=== PATIENT | male | born 1955 | race Two or more races ===

== ENCOUNTER → 2017-04-27 | Outpatient (CLI) | payer MEDICARE ==
[~2017-04-27] MED LIST: ALPR0.5T3 PO
--- NOTE | 2017-04-27 11:21 | REP ---
TRANSRECTAL PROSTATE ULTRASOUND WITH ULTRASOUND GUIDANCE FOR PROSTATE BIOPSY: Real-time sonographic evaluation of the prostate performed utilizing transrectal probe. The size of the gland is 4.7 x 2.9 x 4.4 cm for a total volume of 31.2 mL. A right-sided nodule measures 6 x 5 mm. A left-sided nodule measures 5 x 4 mm. Echotexture is diffusely heterogeneous with scattered tiny echogenic calcifications. Seminal vesicles appear symmetrical. Ultrasound guidance was provided for Dr. Childers who performed ultrasound guided biopsy of the prostate. Signed by Roby Meza MD 04/27/2017 05:01 P
== END | disposition home or self-care (01) ==
LOC: M SMT PRO 07:56
PROVIDERS: ATTEND Urology
DX: C61 Malignant neoplasm of prostate (principal)
CPT/HCPCS: 55700; 76872; 76942; 88344; G0416

== ENCOUNTER → 2017-05-05 | Outpatient (CLI) | payer MEDICARE ==
[2017-05-05 20:01] LABS: ANION GAP 6 MEQ/L (8-16); BLOOD UREA NITROGEN 11 MG/DL (7-18); CALCIUM LEVEL 9.1 MG/DL (8.5-10.1); CARBON DIOXIDE LEVEL 31 MEQ/L (21-32); CHLORIDE LEVEL 99 MEQ/L (98-107); CREATININE FOR GFR 1.01 MG/DL (0.70-1.30); GLOMERULAR FILTRATION RATE > 60.0 (>56); GLUCOSE, FASTING 103 MG/DL (70-105); POTASSIUM SERUM 4.5 MEQ/L (3.5-5.1); SODIUM LEVEL 136 MEQ/L (136-145)
== END ==
LOC: M SMT 13:53
PROVIDERS: ATTEND Urology
DX: C61 Malignant neoplasm of prostate (principal)
CPT/HCPCS: 36415; 80048; G0463

== ENCOUNTER → 2017-05-07 | Outpatient (CLI) | payer MEDICARE ==
--- NOTE | 2017-05-07 13:49 | REP ---
Whole body radionuclide bone scan: Whole body imaging is performed after intravenous administration of MDP radiolabeled with 21.2 mCi of technetium 99m. Whole-body scanning is performed. Additionally enlarged views of the ribs, pelvis and calvarium are performed. There is a bilaterally symmetric pattern of uptake in the shoulders and sternoclavicular joints, compatible with degenerative uptake. There is a small focus of uptake in the right patella, likely degenerative. There are two small radiotracer foci superimposed over the scrotum and penis , likely artifact from radiolabeled urine. No other foci are identified. Impression: Degenerative pattern of uptake. No evidence of skeletal metastatic disease at this time. Artifactual radial labeling from radiolabeled urine over the scrotum penis. The small focus of uptake in the right knee is nonspecific but likely degenerative. Signed by Roby Monroy MD 05/07/2017 01:40 P
== END ==
LOC: M RAD 09:55
PROVIDERS: ATTEND Urology
DX: C61 Malignant neoplasm of prostate (principal)
CPT/HCPCS: 78306; A9503

== ENCOUNTER → 2017-05-10 | Outpatient (CLI) | payer MEDICARE ==
[~2017-05-10] MED LIST changes: +ISOVUE-370 76% 100ML VIAL (Q9967) As Ordered ONE
--- NOTE | 2017-05-10 08:43 | REP ---
Clinical: Prostate cancer. Technique: Axial contrast enhanced images of the pelvis from L4 through mid thigh with coronal and sagittal re-formations using 100 ml Isovue 370 intravenous contrast material. Comparison: None. Findings: Pelvis demonstrates normal bladder and age appropriate appearance to the prostate gland. No monik prostatic stranding or adenopathy is appreciated. No pelvic sidewall, inguinal, or retroperitoneal adenopathy noted. No pelvic fluid. No free air. Visualized osseous structures without focal abnormalities to suggest metastatic disease. Partially thrombosed abdominal aortic aneurysm is suggested measuring 3.1 cm diameter along with atherosclerotic calcifications to the visualized aorta and vasculature. Visualized enteric system demonstrates sigmoid diverticulosis without acute diverticulitis and no evidence for bowel obstruction or acute inflammatory process. Impression: 1. Normal appearance to the prostate and surrounding soft tissues by CT evaluation. No fluid. No adenopathy. No osseous metastatic disease. 2. Sigmoid diverticulosis. 3. Atherosclerotic changes to the visualized aorta and vasculature with findings to suggest mild aortic aneurysm measuring 3.1 cm maximal diameter above the level of bifurcation. Signed by Cuco Edwards MD 05/10/2017 08:34 A
== END ==
LOC: M RAD 07:43
PROVIDERS: ATTEND Urology
DX: C61 Malignant neoplasm of prostate (principal)
CPT/HCPCS: 72193; Q9967

== ENCOUNTER → 2017-06-01 | Outpatient (CLI) | payer MEDICARE ==
[~2017-06-01] MED LIST changes: -ISOVUE-370 76% 100ML VIAL (Q9967) As Ordered ONE
--- NOTE | 2017-06-01 14:06 | RADONC ---
RADIATION ONCOLOGY CONSULTATION NOTE DATE: 06/01/2017 CHART NUMBER: [id number] DIAGNOSIS: Prostate cancer. STAGE: IIB, [id number]. ECOG PERFORMANCE STATUS: 0. CONSULTATION NOTE: Mr. Nelson is a very pleasant 61-year-old white male with the diagnosis what appears to be a stage IIB, [id number], poorly differentiated Ailey 8 (4-4) adenocarcinoma of the prostate with a PSA of 6.5 who is presenting to us today for consideration of definitive external beam radiation therapy with IMRT/IGRT. HISTORY OF PRESENT ILLNESS: The patient was in his usual state of health until 04/09/2017 when a PSA was done and found to be 6.5. On 04/2017 the patient underwent prostatic needle biopsy and pathology revealed a Ailey score 8 (4-4) adenocarcinoma of the prostate. The tumor involved both the right and left sides of his prostate gland. Mr. Nelson has done well since biopsy and is now seeing us for discussion of possible external beam radiation therapy as a therapeutic option with IMRT/IGRT. PAST MEDICAL HISTORY: The patient's past medical history is positive for hypertension and a stroke in 1985. He had hernia surgery in the and an abdominal aortic aneurysm surgery in 2009. ALLERGIES: The patient has NO KNOWN DRUG ALLERGIES. SOCIAL HISTORY: The patient's chews one can of chewing tobacco a day for the past 10 years. He had smoked one pack of cigarettes per day for 20 years prior to that. He drinks alcohol daily. FAMILY HISTORY: The patient's family history is positive for a father who of prostate cancer and a brother with a brain tumor as well as lung cancer. REVIEW OF SYSTEMS: The patient's review of systems is positive for nocturia at five to six times a night but is otherwise noncontributory. He denies nausea, vomiting, fevers, chills, night sweats, diplopia, headaches, anxiety or depression, anorexia, weight loss, visual disturbances, chest pain, urinary or bowel difficulties, bone pain, or neurological problems. PHYSICAL EXAMINATION: The patient is a well-developed, well-nourished male in no acute distress. HEENT exam is normocephalic, atraumatic. Extraocular movements are intact. There is no palpable cervical, supraclavicular, infraclavicular, axillary, or inguinal lymphadenopathy present. Lungs are clear to auscultation and percussion. Heart has a regular rate and rhythm. Abdomen is benign with no hepatosplenomegaly, masses, or tenderness. Rectal examination reveals a normal anal sphincter tone. His prostate is smooth with no evidence of nodularity. Skeletal examination reveals no tenderness to pressure or percussion of the bony skeleton. Extremities reveal no clubbing, cyanosis, or edema. Neurologic exam is grossly intact as is the remainder of the physical examination. MEDICAL NECESSITY: IMRT/IGRT is clinically indicated for the highly conformal dose planning required. The target volume is in close proximity to critical structures, such as the rectum, bladder, small bowel, and femoral heads. The volume of interest must be covered with narrow margins to adequately protect immediately adjacent structures. The plan requires interpretation of complex testing such as CT localization. As noted above, special planning (IMRT) and localizing (IGRT) is required and essential to maximally protect sensitive normal tissue structures which cannot be accomplished using conventional 3-dimensional planning. ASSESSMENT: Clearly the patient is a candidate for external beam radiation therapy and I have so informed him. I have discussed with the patient in detail the potential benefits as well as possible acute and chronic sequelae of external beam radiation therapy. We discussed logistics of treatment planning, simulation and subsequent fractionated daily radiation treatments. The patient is scheduled to be seen by Dr. Childers on June 14 for placement of fiducial markers and initiation of hormonal treatment. We will schedule the patient for simulation following that. I have discussed as well with the patient the surgical options. He has decided against surgery at this time. In that case radiation will be scheduled. Thank you for allowing us to participate in the care of this very pleasant gentleman. If I could be of any further assistance or provide you with any information, please feel free to contact me anytime. cc: MD Timmy Lucas MD
--- NOTE | 2017-07-14 09:58 | RADONC ---
RADIATION ONCOLOGY PROGRESS NOTE DATE: 07/13/2017 CHART NUMBER: [id number] Mr. Nelson was scheduled for a CT simulation of his prostate field today. The patient came in, but reported he was too claustrophobic to lay down on the CT table. I have therefore rescheduled the CT for next week. I have electronically sent in a prescription for Xanax for him for that simulation. Once again, we will we attempt CT simulation next week.
== END ==
LOC: M ONCR 08:59
PROVIDERS: ATTEND Radiology Radiation Oncology
DX: C61 Malignant neoplasm of prostate (principal)

== ENCOUNTER → 2017-06-29 | Outpatient (CLI) | payer MEDICARE ==
--- NOTE | 2017-06-29 10:22 | REP ---
TRANSRECTAL PROSTATE SONOGRAPHY: HISTORY: Prostate CA. FINDINGS: Transrectal prostate sonographic guidance is provided to Dr. Childers who used transrectal ultrasound guidance to place prostate fiducial markers. Signed by Gregory Cheek MD 06/29/2017 11:07 A
== END ==
LOC: M SMT PRO 08:38
PROVIDERS: ATTEND Urology
DX: C61 Malignant neoplasm of prostate (principal); Z79.899 Other long term (current) drug therapy; I10 Essential (primary) hypertension; F17.210 Nicotine dependence, cigarettes, uncomplicated
CPT/HCPCS: 55876; 76872; A4648

== ENCOUNTER → 2017-07-13 | Outpatient (CLI) | payer MEDICARE ==
[2017-07-13 15:54] LABS: MEAN CORPUSCULAR HEMOGLOBIN 30.8 pg (27.0-33.0); MEAN CORPUSCULAR HGB CONC 35.1 g/dl (32.0-36.5); MEAN CORPUSCULAR VOLUME 87.8 fl (80.0-96.0); RED CELL DISTRIBUTION WIDTH 13.2 % (11.5-14.5); WHITE BLOOD COUNT 6.6 K/mm3 (4.0-10.0)
== END ==
LOC: M RAD 13:38 → M LAB 13:38
PROVIDERS: ATTEND Radiology Radiation Oncology
DX: C61 Malignant neoplasm of prostate (principal)

== ENCOUNTER 2017-07-20 14:04 | Outpatient (RCR) | payer MEDICARE ==
--- NOTE | 2017-07-21 10:02 | RADONC ---
RADIATION ONCOLOGY SIMULATION NOTE DATE: 07/20/2017 CHART NUMBER: [id number] Mr Nelson was taken to the CT scan for CT simulation of his prostate field. CT was accomplished without difficulty or discomfort. Radiation treatment planning is underway and radiation treatments will begin subsequently. An immobilization device was created without difficulty or discomfort. It will be used throughout the course of treatment as well. I was physically present throughout the course of CT simulation. [facility]
--- NOTE | 2017-08-02 13:57 | RADONC ---
RADIATION ONCOLOGY PROGRESS NOTE DATE: 08/02/2017 CHART NUMBER: [id number] Mr. Nelson underwent his first fraction of 180 cGy today to his prostate. It was tolerated without difficulty or discomfort. REVIEW OF SYSTEMS: The patient's review of systems remains unchanged and is unremarkable. He denies nausea, vomiting, fevers, chills, night sweats, diplopia, headaches, anxiety or depression, anorexia, weight loss, visual disturbances, chest pain, urinary or bowel difficulties, bone pain, or neurological problems. PHYSICAL EXAMINATION: Clearly, the patient's skin shows no evidence of radiation change present. The remainder of his physical examination remains unchanged, as well. Mr. Nelson tolerated his first fraction quite well, and radiation will continue as scheduled.
== END 2017-08-07 ==
LOC: M ONCR 14:04
PROVIDERS: ATTEND Radiology Radiation Oncology
DX: C61 Malignant neoplasm of prostate (principal)

== ENCOUNTER → 2017-07-20 | Outpatient (CLI) | payer MEDICARE | LOC: M RAD 13:25 | PROVIDERS: ATTEND Radiology Radiation Oncology | DX: C61 Malignant neoplasm of prostate (principal) ==

== ENCOUNTER → 2017-08-16 | Outpatient (CLI) | payer MEDICARE ==
--- NOTE | 2017-08-17 07:14 | RADONC ---
RADIATION ONCOLOGY PROGRESS NOTE DATE: 08/16/2017 CHART NUMBER: [id number] Mr. Nelson is presently at a dose of 1980 cGy to his prostate and is tolerating treatments quite well at this point with no significant difficulties related to his radiation therapy other than some dysuria. He also reports that little black things were in his urine yesterday. He has no other complaints related to his radiation therapy. REVIEW OF SYSTEMS: The patient's review of systems is positive for pain upon urination as well as perhaps some blood in the urine but is otherwise noncontributory. Denies nausea, vomiting, fevers, chills, night sweats, diplopia, headaches, anxiety or depression, anorexia, weight loss, visual disturbances, chest pain, urinary or bowel difficulties, bone pain, or neurological problems. PHYSICAL EXAMINATION: The patient's skin is in good condition with no evidence of radiation change present. There is no moist or dry desquamation. The remainder of his physical exam remains unchanged. Mr. Nelson is tolerating treatments quite well and radiation will continue as scheduled.
--- NOTE | 2017-08-23 11:44 | RADONC ---
RADIATION ONCOLOGY PROGRESS NOTE DATE: 08/23/2017 CHART NUMBER: [id number] Mr. Nelson is presently at a dose of 2700 cGy to his prostate and is tolerating treatments quite well at this point with no complaints related to his radiation therapy. He is having no urinary or bowel difficulties and no bone pain. REVIEW OF SYSTEMS: The patient's review of systems is noncontributory. He denies nausea, vomiting, fevers, chills, night sweats, diplopia, headaches, anxiety or depression, anorexia, weight loss, visual disturbances, chest pain, urinary or bowel difficulties, bone pain, or neurological problems. PHYSICAL EXAMINATION: The patient's skin is in good condition with no evidence of radiation change present. There is no moist or dry desquamation. The remainder of his physical exam remains unchanged. Mr. Nelson is tolerating treatments quite well, and radiation will continue as scheduled.
== END ==
LOC: M ONCR 09:47
PROVIDERS: ATTEND Radiology Radiation Oncology
DX: C61 Malignant neoplasm of prostate (principal); R30.0 Dysuria; R35.0 Frequency of micturition

== ENCOUNTER 2017-09-08 14:07 | Outpatient (RCR) | payer MEDICARE ==
--- NOTE | 2017-09-15 09:39 | RADONC ---
RADIATION ONCOLOGY DATE: 09/13/2017 CHART NUMBER: [id number] Mr. Nelson is presently at a dose of 5220 cGy to his prostate and overall is tolerating his treatments fairly well without significant difficulties. He does report some increased urinary frequency. REVIEW OF SYSTEMS: Mr. Nelson's review of systems is positive for increased urinary frequency but is otherwise noncontributory. Denies nausea, vomiting, fevers, chills, night sweats, diplopia, headaches, anxiety or depression, anorexia, weight loss, visual disturbances, chest pain, urinary or bowel difficulties, bone pain, or neurological problems. PHYSICAL EXAMINATION The patient's skin is in good condition with no evidence of radiation change present. There is no moist or dry desquamation. The remainder of his physical exam remains unchanged. Mr. Nelson is tolerating treatments quite well, and radiation will continue as scheduled.
--- NOTE | 2017-09-20 10:09 | RADONC ---
RADIATION ONCOLOGY PROGRESS NOTE DATE: 09/20/2017 CHART NUMBER: Mr. Nelson is presently at a dose of 6120 cGy to his prostate and continues to complain of urinary frequency. He says he is going at least every half hour. His previous urinalysis was negative. The patient's review of systems is positive for urinary frequency but is otherwise noncontributory. He denies nausea, vomiting, fevers, chills, night sweats, diplopia, headaches, anxiety or depression, anorexia, weight loss, visual disturbances, chest pain, urinary or bowel difficulties, bone pain, or neurological problems. PHYSICAL EXAMINATION: The patient's skin is in good condition with no evidence of radiation change present. There is no moist or dry desquamation. The remainder of his physical exam remains unchanged. Mr. Nelson is tolerating treatments with some urinary difficulty. I have ordered a new urinalysis to be done today to further investigate whether or not he has urinary tract infection going on. Further recommendations will be made following this test. In the meantime radiation will continue as scheduled.
--- NOTE | 2017-09-27 10:52 | RADONC ---
RADIATION ONCOLOGY PROGRESS NOTE DATE: 09/27/2017 CHART NUMBER: [id number] Mr. Nelson is presently at a dose of 6840 cGy to his prostate and overall is tolerating his treatments fairly well. He continues to complain of urinary frequency. Multiple urinalyses have shown no infection. In addition, there is no sign of diabetes. His A1c and blood glucose levels are within normal limits. He has not been taking Pyridium and I have instructed him to begin taking that. He continues to drink continuously through the day. He says he needs to continue with a great deal of fluids because of his Percocet use. REVIEW OF SYSTEMS: The patient's review of systems is positive for urinary frequency but is otherwise noncontributory. He denies nausea, vomiting, fevers, chills, night sweats, diplopia, headaches, anxiety or depression, anorexia, weight loss, visual disturbances, chest pain, urinary or bowel difficulties, bone pain or neurological problems. PHYSICAL EXAMINATION: The patient's skin is in good condition with no evidence of moist or dry desquamation. The remainder of his physical exam remains unchanged. Mr. Nelson is tolerating treatments quite well and radiation will continue as scheduled.
--- NOTE | 2017-10-04 09:47 | RADONC ---
RADIATION ONCOLOGY PROGRESS NOTE DATE: 10/04/2017 CHART NUMBER: [id number] Mr. Nelson is presently at a dose of 7380 cGy to his prostate and is tolerating treatments quite well at this point with no complaints related to his radiation therapy. He is having no urinary or bowel difficulties and no bone pain. REVIEW OF SYSTEMS: The patient's review of systems is noncontributory. Denies nausea, vomiting, fevers, chills, night sweats, diplopia, headaches, anxiety or depression, anorexia, weight loss, visual disturbances, chest pain, urinary or bowel difficulties, bone pain, or neurological problems. PHYSICAL EXAMINATION: The patient's skin is in good condition with no evidence of radiation change present. There is no moist or dry desquamation. The remainder of his physical exam remains unchanged. Mr. Nelson is tolerating treatments quite well and radiation will continue as scheduled.
== END 2017-10-07 ==
LOC: M ONCR 14:07
PROVIDERS: ATTEND Radiology Radiation Oncology
DX: C61 Malignant neoplasm of prostate (principal)

== ENCOUNTER → 2017-09-20 | Outpatient (CLI) | payer MEDICARE | LOC: M LAB 09:38 | PROVIDERS: ATTEND Radiology Radiation Oncology | DX: C61 Malignant neoplasm of prostate (principal); R35.0 Frequency of micturition; R39.15 Urgency of urination ==

== ENCOUNTER → 2017-09-21 | Outpatient (CLI) | payer MEDICARE ==
[2017-09-21 09:46] LABS: ALBUMIN 3.7 GM/DL (3.2-5.2); ALBUMIN/GLOBULIN RATIO 1.12 (1.00-1.93); ALKALINE PHOSPHATASE 62 U/L (45-117); ALT/SGPT 36 U/L (12-78); ANION GAP 5 MEQ/L (8-16); AST/SGOT 26 U/L (7-37); BILIRUBIN,TOTAL 0.4 MG/DL (0.2-1.0); BLOOD UREA NITROGEN 14 MG/DL (7-18); CALCIUM LEVEL 9.5 MG/DL (8.8-10.2); CARBON DIOXIDE LEVEL 33 MEQ/L (21-32); CHLORIDE LEVEL 100 MEQ/L (98-107); CREATININE FOR GFR 0.98 MG/DL (0.70-1.30); GLOMERULAR FILTRATION RATE > 60.0 (>49); GLUCOSE, FASTING 100 MG/DL (80-110); POTASSIUM SERUM 4.1 MEQ/L (3.5-5.1); SODIUM LEVEL 138 MEQ/L (136-145)
== END ==
LOC: M LAB 08:21
PROVIDERS: ATTEND Radiology Radiation Oncology
DX: R35.0 Frequency of micturition (principal); C61 Malignant neoplasm of prostate; R39.15 Urgency of urination

== ENCOUNTER → 2017-10-27 | Outpatient (CLI) | payer MEDICARE | LOC: M LAB 09:39 | PROVIDERS: ATTEND Radiology Radiation Oncology | DX: C61 Malignant neoplasm of prostate (principal) ==

== ENCOUNTER → 2017-11-10 | Outpatient (CLI) | payer MEDICARE | LOC: M ONCR 08:45 | DX: C61 Malignant neoplasm of prostate (principal) | CPT/HCPCS: G0463 ==

== ENCOUNTER → 2018-03-10 | Outpatient (CLI) | payer MEDICARE ==
[2018-03-10 19:30] LABS: PROSTATIC SPECIFIC AG MONITOR 0.06 NG/ML (< 4.0)
[2018-03-10 19:31] LABS: TESTOSTERONE 247 NG/DL (241-827)
== END ==
LOC: M SMT 11:14
DX: C61 Malignant neoplasm of prostate (principal)
CPT/HCPCS: 84403

== ENCOUNTER → 2018-05-18 | Outpatient (CLI) | payer MEDICARE | LOC: M ONCR 09:06 | DX: Z08 Encounter for follow-up examination after completed treatment for malignant neoplasm (principal); Z85.46 Personal history of malignant neoplasm of prostate | CPT/HCPCS: G0463 ==

== ENCOUNTER → 2018-09-22 | Outpatient (CLI) | payer MEDICARE ==
[2018-09-22 15:18] LABS: PROSTATIC SPECIFIC AG MONITOR 0.2 NG/ML (< 4.0)
== END ==
LOC: M SMT 10:18
DX: C61 Malignant neoplasm of prostate (principal)
CPT/HCPCS: 84153

== ENCOUNTER → 2018-11-23 | Outpatient (CLI) | payer MEDICARE | LOC: M LAB 09:49 | PROVIDERS: ATTEND Specialist | DX: C61 Malignant neoplasm of prostate (principal) ==

== ENCOUNTER → 2018-11-30 | Outpatient (CLI) | payer MEDICARE ==
--- NOTE | 2018-11-30 14:41 | RADONC ---
RADIATION ONCOLOGY FOLLOWUP NOTE DATE: 11/30/2018 CHART NUMBER: [id number] DIAGNOSIS: Prostate cancer. STAGE: IIB, [id number]. ECOG PERFORMANCE STATUS: 0. FOLLOWUP NOTE: Mr. Nelson is a very pleasant 63-year-old white male with the diagnosis of a stage IIB, [id number], poorly differentiated Beattie score 8 (4-4) adenocarcinoma of the prostate with a PSA level of 6.5 who is presenting to us today for routine followup visit 1 year and 2 months post completion of external beam radiation therapy. The patient presents today reporting that he is doing quite well with no complaints at this time related to his radiation therapy or disease. He is having no urinary or bowel difficulties and no bone pain. The patient's review of systems is noncontributory. He denies nausea, vomiting, fevers, chills, night sweats, diplopia, headaches, anxiety or depression, anorexia, weight loss, visual disturbances, chest pain, urinary or bowel difficulties, bone pain, or neurological problems. PHYSICAL EXAMINATION: The patient is a well-developed, well-nourished male in no acute distress. HEENT exam is normocephalic, atraumatic. Extraocular movements are intact. There is no palpable cervical, supraclavicular, infraclavicular, axillary, or inguinal lymphadenopathy present. Lungs are clear to auscultation and percussion. Heart has a regular rate and rhythm. Abdomen is benign with no hepatosplenomegaly, masses, or tenderness. Rectal examination reveals a normal anal sphincter tone. His prostate is smooth with no evidence of nodularity. Skeletal examination reveals no tenderness to pressure or percussion of the bony skeleton. Extremities reveal no clubbing, cyanosis, or edema. Neurologic exam is grossly intact as is the remainder of the physical examination. ASSESSMENT: The patient is clinically MONICA at this time. He is being seen every 6 months by his urologist and routine PSAs are being done. In light of that I have discharged the patient from our followup except on a as needed basis. cc: MD Timmy Lucas MD
== END ==
LOC: M ONCR 10:03
PROVIDERS: ATTEND Radiology Radiation Oncology
DX: C61 Malignant neoplasm of prostate (principal)

== ENCOUNTER → 2019-03-20 | Outpatient (CLI) | payer MEDICARE | LOC: M SMT 11:30 | PROVIDERS: ATTEND Urology | DX: C61 Malignant neoplasm of prostate (principal) ==

== ENCOUNTER 2019-08-07 10:49 | Day surgery (SDC) | payer MEDICARE ==
[~2019-08-07] VITALS: Ht 180.3 cm; Wt 89.1 kg
[~2019-08-07 10:49] MED LIST changes: +CYCL10TA PO; +DULO1CAP5 PO; +GABA-1171 PO; +HYDR-3719 PO; +LISI20TA20 PO; +METO50TA7 PO; +OMEP-221 PO; +SIMV20TA2 PO
[2019-08-07] MEDS ORDERED: LIDOCAINE 2% INJ 100 MG/5 ML SDV (FOR ANES.) As Ordered ONE (10:55)
[2019-08-07] MEDS ORDERED: PROPOFOL 200 MG/20 ML VIAL As Ordered ONE ×2 (10:55→12:32)
[2019-08-07] MEDS ORDERED: fentaNYL 100 MCG/2 ML INJECTION (J3010) As Ordered ONE (10:56)
[2019-08-07] MEDS ORDERED: LABETALOL HCL 100 MG/20 ML VIAL As Ordered ONE (11:09)
[2019-08-07] MEDS ORDERED: NS 1,000 ML IV ONE (12:00)
[2019-08-07] MEDS ORDERED: ePHEDrine SULFATE 25 MG/5 ML(5MG/ML) SYRINGE As Ordered ONE (12:21)
--- NOTE | 2019-08-07 12:46 | ROOR ---
Patient Name: Yassine Nelson Procedure Date: 08/07/2019 11:53 AM Date of : 1955 Age: 64 Room: [facility] Gender: Male Note Status: Finalized Procedure: Upper GI endoscopy Indications: Heartburn, Suspected gastro-esophageal reflux disease Providers: Marty Sullivan MD Referring MD: DARYA FALCON MD Requesting Provider: Medicines: Monitored Anesthesia Care Complications: No immediate complications. Procedure: Pre-Anesthesia Assessment: - Prior to the procedure, a History and Physical was performed, and patient medications and allergies were reviewed. The patient is competent. The risks and benefits of the procedure and the sedation options and risks were discussed with the patient. All questions were answered and informed consent was obtained. Patient identification and proposed procedure were verified by the physician, the nurse and the anesthesiologist in the procedure room. Mental Status Examination: alert and oriented. Airway Examination: normal oropharyngeal airway and neck mobility. Respiratory Examination: clear to auscultation. CV Examination: normal. Prophylactic Antibiotics: The patient does not require prophylactic antibiotics. Prior Anticoagulants: The patient has taken no previous anticoagulant or antiplatelet agents. ASA Grade Assessment: II - A patient with mild systemic disease. After reviewing the risks and benefits, the patient was deemed in satisfactory condition to undergo the procedure. The anesthesia plan was to use monitored anesthesia care (MAC). Immediately prior to administration of medications, the patient was re-assessed for adequacy to receive sedatives. The heart rate, respiratory rate, oxygen saturations, blood pressure, adequacy of pulmonary ventilation, and response to care were monitored throughout the procedure. The physical status of the patient was re-assessed after the procedure. The Endoscope was introduced through the mouth, and advanced to the second part of duodenum. The upper GI endoscopy was accomplished without difficulty. The patient tolerated the procedure well. Findings: The Z-line was irregular and was found in the distal esophagus. LA Grade A (one or more mucosal breaks less than 5 mm, not extending between tops of 2 mucosal folds) esophagitis with no bleeding was found in the distal esophagus. Biopsies were taken with a cold forceps for histology. Verification of patient identification for the specimen was done by the physician and nurse using the patient's name, date and medical record number. Estimated blood loss was minimal. A medium-sized hiatal hernia was present. Scattered severe inflammation characterized by erosions, erythema, friability and granularity was found in the gastric antrum. Biopsies were taken with a cold forceps for Helicobacter pylori testing. The duodenal bulb and second portion of the duodenum were normal. Impression: - Z-line irregular, in the distal esophagus. - LA Grade A reflux esophagitis. Rule out [place]'s esophagus. Biopsied. - Medium-sized hiatal hernia. - Gastritis. Biopsied. - Normal duodenal bulb and second portion of the duodenum. Recommendation: - Patient has a contact number available for emergencies. The signs and symptoms of potential delayed complications were discussed with the patient. Return to normal activities tomorrow. Written discharge instructions were provided to the patient. - High fiber diet. - Continue present medications. - Follow an antireflux regimen. - Await pathology results. - Telephone GI clinic for pathology results in 2 weeks. - Return to primary care physician. Mraty Sullivan MD Marty Sullivan MD 08/07/2019 12:45:21 PM Electronically signed by Marty Sullivan MD Number of Addenda: 0 Note Initiated On: 08/07/2019 11:53 AM Estimated Blood Loss: Estimated blood loss was minimal. Estimated blood loss was minimal.
--- NOTE | 2019-08-07 13:03 | ROOR ---
Patient Name: Yassine Nelson Procedure Date: 08/07/2019 11:54 AM Date of : 1955 Age: 64 Room: [facility] Gender: Male Note Status: Finalized Procedure: Colonoscopy Indications: Screening for colorectal malignant neoplasm Providers: Marty Sullivan MD Referring MD: DARYA FALCON MD Requesting Provider: Medicines: Monitored Anesthesia Care Complications: No immediate complications. Procedure: Pre-Anesthesia Assessment: - Prior to the procedure, a History and Physical was performed, and patient medications and allergies were reviewed. The patient is competent. The risks and benefits of the procedure and the sedation options and risks were discussed with the patient. All questions were answered and informed consent was obtained. Patient identification and proposed procedure were verified by the physician, the nurse and the anesthesiologist in the procedure room. Mental Status Examination: alert and oriented. Airway Examination: normal oropharyngeal airway and neck mobility. Respiratory Examination: clear to auscultation. CV Examination: normal. Prophylactic Antibiotics: The patient does not require prophylactic antibiotics. Prior Anticoagulants: The patient has taken no previous anticoagulant or antiplatelet agents. ASA Grade Assessment: II - A patient with mild systemic disease. After reviewing the risks and benefits, the patient was deemed in satisfactory condition to undergo the procedure. The anesthesia plan was to use monitored anesthesia care (MAC). Immediately prior to administration of medications, the patient was re-assessed for adequacy to receive sedatives. The heart rate, respiratory rate, oxygen saturations, blood pressure, adequacy of pulmonary ventilation, and response to care were monitored throughout the procedure. The physical status of the patient was re-assessed after the procedure. The Colonoscope was introduced through the anus and advanced to the terminal ileum, with identification of the appendiceal orifice and IC valve. The colonoscopy was performed without difficulty. The patient tolerated the procedure well. The quality of the bowel preparation was good. The terminal ileum, ileocecal valve, appendiceal orifice, and rectum were photographed. Scope insertion time was 3 minutes. Scope withdrawal time was 9 minutes. The total duration of the procedure was 12 minutes. Findings: The perianal and digital rectal examinations were normal. The terminal ileum appeared normal. A 5 mm polyp was found in the ascending colon. The polyp was sessile. The polyp was removed with a cold snare. Resection and retrieval were complete. Verification of patient identification for the specimen was done by the physician and nurse using the patient's name, date and medical record number. Estimated blood loss was minimal. A 5 mm polyp was found in the transverse colon. The polyp was sessile. The polyp was removed with a cold snare. Resection and retrieval were complete. A 15 mm polyp was found in the distal transverse colon. The polyp was carpet-like and sessile. Polypectomy was attempted, initially using a hot snare. Polyp resection was incomplete with this device. This intervention then required a different device and polypectomy technique. The polyp was removed with a cold snare. Resection and retrieval were complete. To close a defect after polypectomy, one hemostatic clip was successfully placed. There was no bleeding at the end of the procedure. Multiple small-mouthed diverticula were found in the sigmoid colon. There was no evidence of diverticular bleeding. Non-bleeding external and internal hemorrhoids were found during retroflexion. The hemorrhoids were medium-sized. A patchy area of moderately erythematous mucosa was found in the rectum, consistent with radiation proctitis.. Impression: - The examined portion of the ileum was normal. - One 5 mm polyp in the ascending colon, removed with a cold snare. Resected and retrieved. - One 5 mm polyp in the transverse colon, removed with a cold snare. Resected and retrieved. - One 15 mm polyp in the distal transverse colon, removed with a cold snare. Resected and retrieved. Clip was placed. - Mild diverticulosis in the sigmoid colon. There was no evidence of diverticular bleeding. - Non-bleeding external and internal hemorrhoids. - Erythematous mucosa in the rectum, likely from radiation proctitis. Recommendation: - Patient has a contact number available for emergencies. The signs and symptoms of potential delayed complications were discussed with the patient. Return to normal activities tomorrow. Written discharge instructions were provided to the patient. - High fiber diet. - Continue present medications. - Await pathology results. - Repeat colonoscopy in 1 year for surveillance based on pathology results. - Telephone GI clinic for pathology results in 2 weeks. - Return to GI clinic in 1 year. - Return to primary care physician. Marty Sullivan MD Marty Sullivan MD 08/07/2019 1:02:25 PM Electronically signed by Marty Sullivan MD Number of Addenda: 0 Note Initiated On: 08/07/2019 11:54 AM Estimated Blood Loss: Estimated blood loss was minimal.
[2019-08-07 13:05] VITALS: BP 124/76
== END 2019-08-07 13:48 | disposition home or self-care (01) ==
LOC: M OPP 10:49
PROVIDERS: ATTEND Internal Medicine Gastroenterology
DX: Z12.11 Encounter for screening for malignant neoplasm of colon (principal); D12.2 Benign neoplasm of ascending colon; D12.3 Benign neoplasm of transverse colon; K57.30 Diverticulosis of large intestine without perforation or abscess without bleeding; K64.8 Other hemorrhoids; K62.89 Other specified diseases of anus and rectum; R12 Heartburn; K22.8 Other specified diseases of esophagus; K21.0 Gastro-esophageal reflux disease with esophagitis; K44.9 Diaphragmatic hernia without obstruction or gangrene; K29.70 Gastritis, unspecified, without bleeding; I10 Essential (primary) hypertension; E78.5 Hyperlipidemia, unspecified; M54.9 Dorsalgia, unspecified; I71.4 Abdominal aortic aneurysm, without rupture; Z92.3 Personal history of irradiation; Z85.46 Personal history of malignant neoplasm of prostate; F17.210 Nicotine dependence, cigarettes, uncomplicated; Z88.8 Allergy status to other drugs, medicaments and biological substances; Z79.899 Other long term (current) drug therapy
CPT/HCPCS: 43239; 45385; 88305; J3010

== ENCOUNTER → 2019-10-03 | Outpatient (CLI) | payer MEDICARE | LOC: M PLALAB 11:46 | PROVIDERS: ATTEND Urology | DX: C61 Malignant neoplasm of prostate (principal) ==